=== PATIENT | male | born 1985 | race Caucasian/White ===

== ENCOUNTER 2020-12-16 13:40 | Emergency (ER) | payer BC ==
[~2020-12-16 13:40] MED LIST: BENTYL 10MG CAP10 MG PO; LISINOPRIL20 MG PO
== END 2020-12-16 16:59 | disposition left against medical advice (07) ==
LOC: ER1 13:40
DX: Z53.21 Procedure and treatment not carried out due to patient leaving prior to being seen by health care provider (principal)